=== PATIENT | male | born 1975 | race Caucasian/White ===

== ENCOUNTER 2022-04-19 09:06 | Outpatient (CLI) | payer OTHER, SELFPAY ==
[2022-04-19 11:38] LABS: Albumin* 4.3 g/dL (3.3-5.0); Chloride* 105 mmol/L (96-114)
[2022-04-19 11:39] LABS: Potassium* 4.8 mmol/L (3.6-5.1); Sodium* 138 mmol/L (135-149)
[2022-04-19 11:41] LABS: Alkaline Phosphatase* 127 U/L (40-150); Aspartate Amino Transferase* 27 U/L (12-35); Bilirubin Total* 0.7 mg/dL (0.1-1.5); Blood Urea Nitrogen* 15 mg/dL (5-24); Carbon Dioxide* 25 mmol/L (20-32); Cholesterol* 223 mg/dL (90-199); Creatinine* 0.9 mg/dL (0.5-1.5); Estimated Glomerular Filt Rate 106 ml/min; Glucose* 93 mg/dL (60-115); Total Protein* 7.5 g/dL (6.0-8.3)
[2022-04-19 11:42] LABS: Alanine Aminotransferase* 44 U/L (4-50); Calcium* 9.3 mg/dL (8.4-10.6); HDL Cholesterol* 48 mg/dL (>=40); LDL Cholesterol Calculated 149 mg/dL (<100); Triglycerides* 130 mg/dL (40-149)
[2022-04-19 11:44] LABS: C Reactive Protein* 1.5 mg/dL (0.5-1.0)
[2022-04-19 11:59] LABS: Vitamin D 25 Hydroxy* 36 ng/mL (30-80)
[2022-04-19 12:12] LABS: PSA Screen* 0.45 ng/mL (0.10-4.00)
[2022-04-20 15:24] LABS: Sex Hormone Binding Globulin 38 nmol/L (17-56); Testosterone, Adult Male 354 ng/dL (300-890); Testosterone, Free Calculation 60 pg/mL (47-244); Testosterone, Percentage Free 1.7 % (1.6-2.9)
== END 2022-04-19 09:07 | disposition home or self-care (01) ==
PROVIDERS: PCP Family Medicine; Visit Provider Family Medicine
DX: Z00.00 Encounter for general adult medical examination without abnormal findings (principal); E53.8 Deficiency of other specified B group vitamins; R79.89 Other specified abnormal findings of blood chemistry; M25.50 Pain in unspecified joint; I48.91 Unspecified atrial fibrillation; R68.82 Decreased libido
CPT/HCPCS: 80053; 80061; 82306; 84153; 84270; 84402; 84403; 84443; 86140

== ENCOUNTER 2022-05-19 09:03 | Outpatient (CLI) | payer OTHER, SELFPAY | END 2022-05-19 09:04 | disposition home or self-care (01) | PROVIDERS: PCP Family Medicine; Visit Provider Surgery | DX: Z12.11 Encounter for screening for malignant neoplasm of colon (principal); K63.5 Polyp of colon; K21.9 Gastro-esophageal reflux disease without esophagitis; K22.89 Other specified disease of esophagus; K44.9 Diaphragmatic hernia without obstruction or gangrene; K31.89 Other diseases of stomach and duodenum | CPT/HCPCS: 43239; 45385; 88305; 99153; J1200; J2250; J3010 ==

== ENCOUNTER 2023-05-25 13:52 | Outpatient (CLI) | payer OTHER, SELFPAY | END 2023-05-25 13:53 | disposition home or self-care (01) | LOC: LKVREF 13:53 | PROVIDERS: PCP Family Medicine; Visit Provider Family Medicine | DX: E66.9 Obesity, unspecified (principal); I48.91 Unspecified atrial fibrillation | CPT/HCPCS: 80053; 80061; 84443 ==

== ENCOUNTER 2023-07-05 19:14 | Outpatient (CLI) | payer OTHER, SELFPAY ==
--- NOTE | 2023-08-08 08:32 | W.PM.SLEEP ---
Sleep Study Details Details Interpreting Provider: Gustavo Date of Sleep Study: 07/05/23 Sleep Study Details: STUDY TYPE: Home unattended ? BMI:? 33.6 ORDERING PROVIDER:Dylan Vaughn INDICATION:? Atrial fibrillation, concerned about sleep apnea ? SLEEP SUMMARY:? 523 minutes monitored RESPIRATORY SUMMARY:? AHI 10.6, supine 26.3, left and right lateral approximately 3.8 PERIODIC LIMB MOVEMENTS OF SLEEP:? Not recorded CARDIAC:? Range 29-75, mean 48.6 IMPRESSION:? Mild obstructive sleep apnea with moderate apnea in the supine position. Bradycardia noted RECOMMENDATION: Treatment options for sleep apnea would include CPAP dental appliance positional therapy and/or airway expansion surgery Further cardiac evaluation may be indicated because of bradycardia.
== END 2023-07-05 19:15 | disposition home or self-care (01) ==
LOC: SLEEP 19:15
PROVIDERS: PCP Family Medicine; Visit Provider Family Medicine
DX: G47.33 Obstructive sleep apnea (adult) (pediatric) (principal)
CPT/HCPCS: 95806

== ENCOUNTER 2024-02-08 11:33 | Outpatient (CLI) | payer OTHER, SELFPAY ==
--- NOTE | 2024-02-08 12:27 | W.ANESCHARGE ---
Anesthesia Charges Start Date/Time Anesthesia Start Date: 02/08/24 Anesthesia Start Time: 12:13 Stop Date/Time Anesthesia Stop Date: 02/08/24 Anesthesia Stop Time: 12:29
--- NOTE | 2024-02-08 12:34 | W.ANESCHARGE ---
Anesthesia Charges Start Date/Time Anesthesia Start Date: 02/08/24 Anesthesia Start Time: 12:13 Stop Date/Time Anesthesia Stop Date: 02/08/24 Anesthesia Stop Time: 12:29
== END 2024-02-08 11:34 | disposition home or self-care (01) ==
LOC: OP CLINIC 11:34
PROVIDERS: PCP Family Medicine; Visit Provider Surgery
DX: K31.A0 Gastric intestinal metaplasia, unspecified (principal); K22.89 Other specified disease of esophagus; K20.90 Esophagitis, unspecified without bleeding
CPT/HCPCS: 00731; 43239; 88305; J2704

== ENCOUNTER 2024-08-02 09:20 | Outpatient (CLI) | payer OTHER, SELFPAY | END 2024-08-02 09:21 | disposition home or self-care (01) | LOC: NFLDREF 08-05 20:58 | PROVIDERS: PCP Family Medicine; Referring Provider Family Medicine; Visit Provider Family Medicine | DX: Z00.00 Encounter for general adult medical examination without abnormal findings (principal); R53.83 Other fatigue; E66.9 Obesity, unspecified; R68.82 Decreased libido; R79.89 Other specified abnormal findings of blood chemistry; G62.9 Polyneuropathy, unspecified; I48.91 Unspecified atrial fibrillation | CPT/HCPCS: 80053; 80061; 82607; 82652; 84270; 84402; 84403; 84443; G0103 ==